=== PATIENT | female | born 1995 | race Two or more races ===

== ENCOUNTER 2024-10-02 18:58 | Emergency (ER) | payer MEDICAID, SELFPAY ==
[2024-10-02 18:59] VITALS: BMI 33.9
[2024-10-02 19:49] VITALS: BP 132/84; PULSE 96; RESP 18; TEMP 37; O2SAT 100
--- NOTE | 2024-10-02 20:07 | PD.EDURI ---
Upper Respiratory Inf. RME/HPI General Chief Complaint: Flu Like Symptoms Stated Complaint: COUGH,SORE THROAT, HANSON Time Seen by Provider: 10/02/24 19:06 Arrival date/time: 10/02/24 18:58 RME / HPI RME / HPI Narrative: 29-year-old female patient came in for evaluation regarding sore throat. Has been having shortness since last night associated with nonproductive cough, headache, and not feeling well. Severity of symptoms moderate. Patient's family is also sick with flulike symptoms. Denies any chest pain denies any abdominal pain denies any vomiting. Related Data Home Medications ?Medication ?Instructions ?Recorded ?Confirmed vit no.95-ferrous 1 tab PO QDAY 03/09/21 08/22/21 fumarate 28 mg-folic acid 800 mcg tablet () Previous Rx's ?Medication ?Instructions ?Recorded ibuprofen 800 mg tablet 800 mg PO Q8H PRN pain #30 tabs 08/23/21 tramadol 50 mg tablet 50 mg PO TID PRN pain #15 tabs 04/01/22 permethrin 5 % topical cream 1 applic topical Q7D 2 doses #60 03/18/24 grams fexofenadine 60 mg-pseudoephedrine 1 tab PO Q12H PRN sinus symptoms 10/02/24 ER 120 mg tablet,ext.release,12 hr #20 tabs (Allergy Relief-D (fexofenadine)) prednisone 50 mg tablet 50 mg PO QDAY #5 tabs 10/02/24 Allergies Allergy/AdvReac Type Severity Reaction Status Date / Time No Known Allergies Allergy Verified 10/02/24 19:05 Review of Systems Review of Systems Narrative Review of Systems: Review of system reviewed and within normal limits except mentioned in HPI ED Exam Narrative Physical exam: VITAL SIGNS: Reviewed. GENERAL APPEARANCE: Alert and interactive, follows commands, no acute distress, HEAD AND FACE: Non-traumatic. ENT: PERRL, pink conjunctivitis, eyelid no trauma, Mucous membrane moist. NECK: Supple, nontender, no nuchal rigidity. CHEST: No tenderness, no crepitus, no paradoxical movement, no retractions. LUNGS: Clear, well ventilated, symmetric, no rales, no wheezing, no ronchi, no stridor, good breath sounds bilaterally. HEART: Regular rate, regular rhythm, no murmur, no gallops. ABDOMEN: Soft, positive bowel sounds, nondistended, no guarding, nontender, no rebound, no masses, RECTAL: Deferred. GENITAL: Deferred. NEUROLOGICAL: Gross motor function intact sensory function intact, Appropriate for age. MUSCULOSKELETAL: low back nontender, full range of motion. EXTREMITIES: Nontender, full range of motion. SKIN: Color pink, dry, no rash, no lacerations, no abrasions, no contusions. LYMPHATICS: Deferred. Course Quality Measures none Orders Category Date Time Status Bedside COVID-19 Antigen Test NOW Care 10/02/24 20:06 Active Bedside Influenza A&B Antigen Test NOW Care 10/02/24 20:06 Completed Strep A Rapid Stat Lab 10/02/24 20:29 Completed DiphenhydrAMINE [Benadryl] Med 10/02/24 22:25 Once 50 mg PO X1 ONE Ibuprofen Tab [Motrin Tab] Med 10/02/24 20:06 Discontinued 800 mg PO X1 ONE Vital Signs Vital signs: Vital Signs Temperature 98.6 F 10/02/24 19:49 Pulse Rate 96 10/02/24 19:49 Respiratory Rate 18 10/02/24 19:49 Blood Pressure 132/84 H 10/02/24 19:49 Pulse Oximetry (%) 100 10/02/24 19:49 Oxygen Delivery Method Room Air 10/02/24 19:49 Upper Respiratory Infection [facility] Narrative [facility] Narrative:: 29-year-old female patient came in for evaluation regarding sore throat. Has been having shortness since last night associated with nonproductive cough, headache, and not feeling well. Severity of symptoms moderate. Patient's family is also sick with flulike symptoms. Denies any chest pain denies any abdominal pain denies any vomiting. Patient tested negative for strep and influenza Patient appears nontoxic and hemodynamically stable. Patient discharged home and instructed to follow-up with primary care provider in 24 to 48 hours. Instructed to return to the emergency department immediately if worsening of symptoms Patient data External records reviewed:: None Clinical information provided by:: patient Social determinants that could affect healthcare access:: none Patient has the following chronic illnesses:: None How is presenting disease/condition affected by chronic disease/condition?: no chronic disease Evaluation data The following diagnostics were reviewed and interpreted by me:: lab results Lab and/or radiology exams considered but not ordered:: None Interpretation Summary: See results in MDM Medications / Prescriptions Medications or Prescriptions considered but not ordered:: None Medication administrations:: Medication Administration History Discontinued Medications Ibuprofen (Ibuprofen Tab 400 Mg Tablet) 800 mg PO X1 ONE Stop: 10/02/24 20:07 Last Admin: 10/02/24 20:41 Dose: 800 mg Documented By: LUANN Schumacher Consultations Consultation(s) initiated? (list below): No Diagnosis Upper Respiratory Differential Diagnosis: upper respiratory infection, sinusitis and viral infection Most likely diagnosis given after review of the tests above:: URI Admission Indicated Admission indicated?: not indicated Admission Request Was there a request for admission?: No Disposition Plan Disposition Plan: Discharge Discharge Attestation Discharge Attestation: The patient was given an opportunity to ask questions and understood the discharge instructions. Discharge instructions specifically effects, indications for sooner follow up or return to the emergency department, and the expected course of current diagnosis. Patient condition: Stable Discharge Plan Plan Patient Disposition: HOME (Self Care) Disposition Comment: Stable Prescriptions/Referrals Prescriptions/Med Rec: New fexofenadine-pseudoephedrine [Allergy Relief-D(fexofenadine)] 60-120 mg tablet extended release 12 hr 1 tab PO Q12H PRN (Reason: sinus symptoms) Qty: 20 0RF prednisone 50 mg tablet 50 mg PO QDAY Qty: 5 0RF No Action ibuprofen 800 mg tablet 800 mg PO Q8H PRN (Reason: pain) Qty: 30 0RF tramadol 50 mg tablet 50 mg PO TID PRN (Reason: pain) Qty: 15 0RF PNV cmb#95-ferrous fumarate-FA [] 28 mg iron- 800 mcg Tablet 1 tab PO QDAY permethrin 5 % cream 1 applic topical Q7D Qty: 60 0RF Rx Instructions: Apply head 2 toe, Leave for 8 hours, then rinse. reapply 7 days after if symptoms remain Problem List Clinical Impression: URI (upper respiratory infection) Patient/Caregiver Discharge Instructions Discharge Activity: activity as tolerated Education Materials: ED URI, Viral, No Abx (Adult) Additional Instructions: Thank you for the opportunity for serving you today. You are stable for discharged . You are advised to: Follow-up with your PCP in 1 to 2 days Return to ED for worsening of symptoms Increase oral fluids Take medication as prescribed Print Language: [place] Stand Alone Forms: Nidia Award Info., Patient Portal Info Letter PA/PROCUREMENT DIRECTOR Supervising Physician PA/PROCUREMENT DIRECTOR Supervising Physician: MD Mone
[2024-10-02] MEDS: IBUPROFEN TAB 400 MG TABLET 800 MG PO (20:41)
[2024-10-02 21:01] LABS: Strep A Rapid Negative (Negative)
[2024-10-02] MEDS: DiphenhydrAMINE 25 MG CAPSULE 50 MG PO (22:38)
== END 2024-10-02 23:35 | disposition home or self-care (01) ==
PROVIDERS: Nurse Practitioner Family; Emergency Provider Emergency Medicine
DX: J06.9 Acute upper respiratory infection, unspecified (principal)
CPT/HCPCS: 87400; 87651; 87811; 99283; A9270